=== PATIENT | female | born 1945 | race Caucasian/White ===

== ENCOUNTER 2017-10-24 08:35 | Observation (INO) | payer OTHER ==
[~2017-10-24] VITALS: Ht 160 cm; Wt 83.2 kg
[2017-10-24] VITALS (7 sets, daily range): BP systolic 130–194; BP diastolic 58–79
[~2017-10-24 08:35] MED LIST: ACID CONTROL150 MG PO; ALLEGRA60 MG PO; APIDRA SOL100 UNIT/1 SC; CALCIUM + D3 E1 EACH PO; FIBER THERAPY0.52 GM PO; FISH OIL 1,0001 EAC7 PO; LANTUS 3 M100 UNITS1 SC; LO-DOSE ASPIRIN81 M2 PO; MAGNESIUM250 MG PO; NIACIN500 M4 PO; NYSTATIN-TRIAMC15 GM TP; PLAVIX75 MG PO; PRAVACHOL40 MG PO; PRINIVIL20 MG PO; RESTASIS MULTI5.5 ML BOTH EYES; SYNTHROID50 MCG PO; TYLENOL EXTRA500 MG PO; VITAMIN D-32000 UNI2 PO
[2017-10-25 04:22] VITALS: BP 119/53
[2017-10-25 07:41] VITALS: BP 132/56
[2017-10-25] MEDS ORDERED: CYCLOBENZAPRINE10 MG PO (08:15)
[2017-10-25] MEDS ORDERED: HYDROCODON-ACE1 EAC7 PO (08:15)
[2017-10-25 11:35] VITALS: BP 169/72
[2017-10-25 16:18] VITALS: BP 132/60
== END 2017-10-25 17:08 | disposition home or self-care (01) ==
LOC: SDC 08:35 → ENRESERV 17:24 → 3EAST 20:10
PROVIDERS: Neurological Surgery
PROC: 01NB0ZZ Release Lumbar Nerve, Open Approach (ICD-10-PCS; principal; 2017-10-24)
DX: M48.062 Spinal stenosis, lumbar region with neurogenic claudication (principal); M54.16 Radiculopathy, lumbar region; M47.816 Spondylosis without myelopathy or radiculopathy, lumbar region; E11.9 Type 2 diabetes mellitus without complications; M06.9 Rheumatoid arthritis, unspecified; Z95.820 Peripheral vascular angioplasty status with implants and grafts; Z87.891 Personal history of nicotine dependence; Z80.3 Family history of malignant neoplasm of breast; Z82.3 Family history of stroke; Z82.49 Family history of ischemic heart disease and other diseases of the circulatory system; Z84.1 Family history of disorders of kidney and ureter; Z79.02 Long term (current) use of antithrombotics/antiplatelets; Z79.4 Long term (current) use of insulin
CPT/HCPCS: 72020; 76000; 82948; G0378; J0690; J1100; J1170; J1200; J1815; J2405; J2710; J2765; J3010; J3480; J7643; S0020